=== PATIENT | male | born 1995 | race Caucasian/White ===

== ENCOUNTER 2018-11-28 14:08 | Emergency (ER) | payer MEDICAID ==
--- NOTE | 2018-11-28 16:12 | EDM.PDOC ---
ED HPI GENERAL MEDICAL PROBLEM - General Chief Complaint: Back Pain or Injury Stated Complaint: BACK PAIN Time Seen by Provider: 11/28/18 15:59 Source of Information: Reports: Patient History Limitations: Reports: No Limitations - History of Present Illness INITIAL COMMENTS - FREE TEXT/NARRATIVE: This gentleman is here because of low back pain. It's been going on for about one month and he's been off work during that period of time. Pain seems to be getting worse. He plans to see a chiropractor this coming Sunday. That's in 4 days. He hasn't been taking anything for the pain neither Tylenol or any kind of an NSAID. Denies any kind of muscle weakness or problems with the bladder or bowels Lower Back Pain Score (Numeric/FACES): 7 - Related Data Allergies Allergy/AdvReac Type Severity Reaction Status Date / Time No Known Allergies Allergy Verified 11/28/18 14:37 Home Meds: Home Meds NK [No Known Home Meds] 11/28/18 [History] Past Medical History Musculoskeletal History: Reports: Back Pain, Chronic Neurological History: Reports: Concussion - Infectious Disease History Infectious Disease History: Reports: Chicken Pox - Past Surgical History Head Surgeries/Procedures: Reports: None Musculoskeletal Surgical History: Reports: Shoulder Surgery, Other (See Below) Dermatological Surgical History: Reports: None Social & Family History - Tobacco Use Smoking Status *Q: Never Smoker Second Hand Smoke Exposure: No - Caffeine Use Caffeine Use: Reports: Coffee, Energy Drinks, Soda, Tea - Recreational Drug Use Recreational Drug Use: No ED ROS GENERAL - Review of Systems Review Of Systems: ROS reveals no pertinent complaints other than HPI. ED EXAM,LOWER BACK PAIN/INJURY - Physical Exam Exam: See Below Exam Limited By: No Limitations General Appearance: Alert, WD/WN, No Apparent Distress Back Exam: Other (There is some mild tenderness to the left lumbar area this is about the L5-S1 area just to the left of midline. He has limited range of motion and says he gets really bad pain if he tries to flex the back.) Extremities: Normal Inspection Neurological: Normal Dorsiflexion, Normal Plantar Flexion, Normal Reflexes, No Motor/Sensory Deficits Skin Exam: Warm, Dry Course - Vital Signs Last Recorded V/S: Last Vital Signs Temp 35.6 C 11/28/18 14:38 Pulse 78 11/28/18 14:38 Resp 16 11/28/18 14:38 BP 125/70 11/28/18 14:38 Pulse Ox 100 11/28/18 14:38 Departure - Departure Time of Disposition: 16:09 Disposition: Home, Self-Care 01 Condition: Fair Clinical Impression: Low back pain - Discharge Information Instructions: Back Pain, Adult, [id number] Referrals: PCP,None [Primary Care Provider] - Forms: ED Department Discharge Additional Instructions: Frequently you can get a small pinch nerve in the back it causes some muscle spasm. A chiropractor may be able to help with that. Heat may also help. For pain you can try Tylenol. Follow the package instructions and note that there is a maximum dose per day. You can take. Along with the Tylenol you may add either ibuprofen or naproxen (but not both). For the ibuprofen and naproxen you could actually double the over the counter dose and that would be equivalent to the lowest prescription dose. Both ibuprofen and naproxen can upset your stomach and cause ulcers. Return to the ER at any time if needed. If at any time you start having actual muscle weakness in your legs or you are unable to urinate or you become incontinent of stool that's an emergency and you need to be seen in the ER immediately
== END 2018-11-28 16:31 | disposition home or self-care (01) ==
LOC: JP.ED 14:08
DX: M54.5 Low back pain (principal)
CPT/HCPCS: 99283